=== PATIENT | male | born 1960 | race African-American/Black ===

== ENCOUNTER 2017-07-07 08:44 | Day surgery (SDC) | payer OTHER ==
[2017-07-07] MEDS ORDERED: TETRACAINE 0.5% OPHTH 1 DOSE AFFEYE ONE ×4 (09:00→09:31)
[2017-07-07] MEDS ORDERED: MYDRIACIL OPHTH 1 DOSE AFFEYE ONE ×3 (09:00→09:13)
[2017-07-07] MEDS ORDERED: AK-DILATE 2.5% OPHTH 1 DOSE OP ONE ×3 (09:00→09:13)
[2017-07-07 11:36] VITALS: BP 159/97
== END 2017-07-07 09:45 | disposition home or self-care (01) ==
LOC: SURG1 08:44
PROVIDERS: ATTEND Ophthalmology
PROC: 085E3ZZ Destruction of Right Retina, Percutaneous Approach (ICD-10-PCS; principal; 2017-07-07 09:30)
DX: E11.311 Type 2 diabetes mellitus with unspecified diabetic retinopathy with macular edema (principal)

== ENCOUNTER 2017-08-11 07:22 | Day surgery (SDC) | payer OTHER ==
[2017-08-11] MEDS ORDERED: TETRACAINE 0.5% OPHTH 1 DOSE AFFEYE ONE ×2 (07:40→08:11)
[2017-08-11] MEDS ORDERED: MYDRIACIL OPHTH 1 DOSE AFFEYE ONE ×3 (07:43→07:49)
[2017-08-11] MEDS ORDERED: AK-DILATE 2.5% OPHTH 1 DOSE AFFEYE ONE (07:43)
[2017-08-11] MEDS ORDERED: AK-DILATE 2.5% OPHTH 1 DOSE OP ONE ×2 (07:45→07:49)
[2017-08-11 08:56] VITALS: BP 186/100
== END 2017-08-11 08:23 | disposition home or self-care (01) ==
LOC: SURG1 07:22
PROVIDERS: ATTEND Ophthalmology
PROC: 085E3ZZ Destruction of Right Retina, Percutaneous Approach (ICD-10-PCS; principal; 2017-08-11 10:30)
DX: E11.311 Type 2 diabetes mellitus with unspecified diabetic retinopathy with macular edema (principal)